=== PATIENT | male | born 1975 | race American Indian/Alaskan Native ===

== ENCOUNTER 2021-06-01 12:45 | Emergency (ER) | payer BC ==
[2021-06-01 13:01] VITALS: BP 119/86
--- NOTE | 2021-06-01 13:48 | XRay Report ---
CHEST 2 VIEWS INDICATION / CLINICAL INFORMATION: cough. COMPARISON: None available. FINDINGS: SUPPORT DEVICES: None. HEART / MEDIASTINUM: No significant abnormality. LUNGS / PLEURA: No significant pulmonary or pleural abnormality. No pneumothorax. ADDITIONAL FINDINGS: No significant additional findings. IMPRESSION: 1. No acute findings. Signer Name: Justin Murphy MD Signed: 06/01/2021 1:44 PM Workstation Name: [id number]
--- NOTE | 2021-06-01 13:59 | Emergency Department Report ---
ED General Adult HPI - General Chief complaint: Upper Respiratory Infection Stated complaint: BODY ACHES, CONGESTION Time Seen by Provider: 06/01/21 13:14 Source: patient Mode of arrival: Ambulatory Limitations: No Limitations - History of Present Illness Initial comments: 46-year-old -[place] male patient presents with complaints of cough and congestion x4 days. He reports he is vaccinated against COVID-19 and that he received a COVID-19 test yesterday, however his test results are not back yet. He denies any past medical history. No hemoptysis, leg pain/swelling, recent long travel, history of DVT/PE/cancer, or fever. He does admit to chills and sweats for the first couple of days, however states those symptoms have resolved. He has not tried any OTC medications for symptoms. He also admits to shortness of breath and tightness in his chest with deep inhalation only. No chest pain otherwise. - Related Data Previous Rx's Medication Instructions Recorded Last Taken Type Benzonatate 200 mg PO TID PRN #30 capsule 06/01/21 Unknown Rx Levocetirizine Dihydrochloride 5 mg PO QHS #10 tablet 06/01/21 Unknown Rx [Xyzal] predniSONE [Deltasone] 20 mg PO BID 3 Days #6 tab 06/01/21 Unknown Rx Allergies Allergy/AdvReac Type Severity Reaction Status Date / Time No Known Allergies Allergy Verified 06/01/21 14:24 ED Review of Systems ROS: Stated complaint: BODY ACHES, CONGESTION Other details as noted in HPI Constitutional: see HPI Respiratory: see HPI Cardiovascular: as per HPI Gastrointestinal: denies: abdominal pain, nausea, vomiting, diarrhea Musculoskeletal: denies: back pain Neurological: denies: headache ED Past Medical Hx - Medications Home Medications: Home Medications Medication Instructions Recorded Confirmed Last Taken Type Benzonatate 200 mg PO TID PRN #30 capsule 06/01/21 Unknown Rx Levocetirizine Dihydrochloride 5 mg PO QHS #10 tablet 06/01/21 Unknown Rx [Xyzal] predniSONE [Deltasone] 20 mg PO BID 3 Days #6 tab 06/01/21 Unknown Rx ED Physical Exam - General Limitations: No Limitations General appearance: alert, in no apparent distress - Head Head exam: Present: atraumatic, normocephalic - Eye Eye exam: Present: normal appearance - Respiratory Respiratory exam: Present: normal lung sounds bilaterally. Absent: respiratory distress - Cardiovascular Cardiovascular Exam: Present: regular rate, normal rhythm - Extremities Exam Extremities exam: Absent: calf tenderness (No swelling or pain noted to legs bilaterally) - Neurological Exam Neurological exam: Present: alert, oriented X3 - Psychiatric Psychiatric exam: Present: normal affect, normal mood - Skin Skin exam: Present: warm, dry, intact, normal color. Absent: rash ED Course Vital Signs 06/01/21 06/01/21 13:01 14:20 Temperature 98.8 F Pulse Rate 74 Respiratory 20 Rate Blood Pressure 119/86 [Left] O2 Sat by Pulse 100 99 Oximetry ED Medical Decision Making - Radiology Data Radiology results: report reviewed CHEST 2 VIEWS INDICATION / CLINICAL INFORMATION: cough. COMPARISON: None available. FINDINGS: SUPPORT DEVICES: None. HEART / MEDIASTINUM: No significant abnormality. LUNGS / PLEURA: No significant pulmonary or pleural abnormality. No pneumothorax. ADDITIONAL FINDINGS: No significant additional findings. IMPRESSION: 1. No acute findings. - Medical Decision Making 46-year-old -[place] male patient presents with complaints of cough and congestion x4 days. He reports he is vaccinated against COVID-19 and that he received a COVID-19 test yesterday, however his test results are not back yet. He denies any past medical history. No hemoptysis, leg pain/swelling, recent long travel, history of DVT/PE/cancer, or fever. He does admit to chills and sweats for the first couple of days, however states those symptoms have re solved. He has not tried any OTC medications for symptoms. He also admits to shortness of breath and tightness in his chest with deep inhalation only. No chest pain otherwise. Chest x-ray is normal. Rapid flu was negative. He denies any loss of taste or smell. Lung exam is normal. He is well-appearing and his vitals are within normal limits. Symptoms appear to be a viral URI. Recommend symptomatic treatment for now. Patient to self quarantine until his Covid results are back. He is to follow-up with his primary care doctor in 3 to 5 days. Discussed in great detail signs and symptoms that should prompt immediate return to the ED with patient who verbalizes understanding Critical care attestation.: If time is entered above; I have spent that time in minutes in the direct care of this critically ill patient, excluding procedure time. ED Disposition Clinical Impression: Viral URI with cough Disposition: HOME / SELF CARE / HOMELESS Is pt being admited?: No Condition: Stable Instructions: Viral Respiratory Infection, [id number] Prescriptions: Levocetirizine Dihydrochloride [Xyzal] 5 mg PO QHS #10 tablet Benzonatate 200 mg PO TID PRN #30 capsule PRN Reason: Cough predniSONE [Deltasone] 20 mg PO BID 3 Days #6 tab Referrals: Deidre SOARES MD, [Primary Care Provider] - 3-5 Days Forms: Work/School Release Form(ED)
== END 2021-06-01 15:01 | disposition home or self-care (01) ==
LOC: ED 12:45
DX: J06.9 Acute upper respiratory infection, unspecified (principal); R05.9 Cough, unspecified
CPT/HCPCS: 71046; 87400; 99283